=== PATIENT | male | born 1995 | race Caucasian/White ===

== ENCOUNTER 2023-04-27 03:49 | Emergency (ER) | payer SELFPAY ==
[2023-04-27 04:47] LABS: Bilirubin Negative (Negative); Blood, Urine Trace (Negative); CAUTI Indications for Culture Pelvic or flank pain; Clarity Clear (Clear); Glucose, Urine (Dipstick) Negative (Negative); Ketone, Urine Negative (Negative); Leukocyte Negative (Negative); Nitrite Negative (Negative); Protein, Urine (Dipstick) Negative (Neg-Trace); RBC/HPF 0-3 HPF (0-3); Specific Gravity, Urine 1.025 (1.005-1.030); Squamous Epithelial 0-3 HPF (0-3); Urobilinogen 0.2 mg/dL (Less than 2); WBC/HPF None Seen HPF (0-3)
[2023-04-27 04:48] LABS: Urine Culture Reflex No No
[2023-04-27] MEDS ORDERED: Cyclobenzaprine 10 MG TAB ONE (04:50)
[2023-04-27] MEDS ORDERED: Aspirin Chewable 81 MG TAB ONE (04:50)
== END 2023-04-27 05:20 | disposition home or self-care (01) ==
LOC: MADERS 03:49
DX: J18.9 Pneumonia, unspecified organism (principal); R31.29 Other microscopic hematuria; M54.89 Other dorsalgia; R00.0 Tachycardia, unspecified; E66.9 Obesity, unspecified
CPT/HCPCS: 71046; 81001; 93005